=== PATIENT | male | born 1990 | race Caucasian/White ===

== ENCOUNTER 2023-07-31 13:45 | Outpatient (CLI) | payer BC, SELFPAY ==
[2023-07-31 18:56] LABS: Alanine Aminotransferase 21 U/L (12-78); Albumin Level 4.3 g/dl (3.5-5.0); Albumin/Globulin Ratio 1.9 (1.1-1.8); Alkaline Phosphatase 56 U/L (38-126); Anion Gap 14.7 mEq/L (5-15); Aspartate Amino Transferase 31 U/L (17-59); Bilirubin,Total 0.7 mg/dl (0.2-1.3); Blood Urea Nitrogen 15 mg/dl (9-20); Calcium 9.3 mg/dl (8.4-10.2); Carbon Dioxide 29 mmol/L (22.0-30.0); Chloride 99 mmol/L (98-107); Chol/HDL Ratio 2.6 (1-3.5); Cholesterol 150 mg/dl (140-200); Estimated Glomerular Filt Rate 132 ml/min (>60); GFR (African American) 159 ML/MIN (>60); Globulin 2.3 g/dL (1.3-3.2); Glucose 104 mg/dl (74-100); HDL Cholesterol 58 mg/dl (40-60); Potassium 3.7 mmoL/L (3.5-5.1); Sodium 139 mmol/L (136-145); Total Protein,Serum 6.6 g/dl (6.3-8.2); Triglycerides 48 mg/dl (30-150); VLDL Cholesterol 10 mg/dL (0-40)
[2023-07-31 19:07] LABS: Basophils % 0.7 % (0.1-2.0); Eosinophils # 0.1 K/mm3 (0.0-0.4); Hematocrit 42.9 % (42.0-52.0); Hemoglobin 14.1 g/dL (14.1-18.0); Lymphocytes # 1.9 K/mm3 (0.7-4.5); Mean Corpuscular HGB Conc 32.8 g/dL (31.8-35.4); Mean Corpuscular Volume 88.6 fl (80-94); Mean Platelet Volume 8.2 fl (7.4-10.4); Monocytes # 0.2 K/mm3 (0.1-1.0); Neutrophils # 1.5 K/mm3 (1.8-7.8); Neutrophils % 40.3 % (37.0-80.0); Platelet Count 244 K/mm3 (142-424); Red Blood Count 4.84 M/mm3 (4.60-6.20); Red Cell Distribution Width 14.3 % (11.5-17.5); White Blood Count 3.7 K/mm3 (4.8-10.8)
[2023-07-31 19:08] LABS: Direct LDL Cholesterol 73.78 mg/dL (100-129)
[2023-07-31 19:10] LABS: MANUAL DIFFERENTIAL MANUAL DIFFERENTIAL (MANUAL DIFF)
[2023-07-31 19:13] LABS: 25-OH Vitamin D, Total 21.1 ng/mL (30-100)
[2023-07-31 19:27] LABS: Eosinophils % 4 % (0-3); Lymphocytes % 59 % (10-50); Monocytes % 4 % (2-9); Neutrophils % 33 % (42-76); Thyroid Stimulating Hormone 4.85 uIU/mL (0.465-4.68); Total Cells Counted 100
[2023-07-31 19:29] LABS: Platelet Estimate Normal; RBC Morphology Normal
== END 2023-07-31 23:59 | disposition home or self-care (01) ==
LOC: LAB.DROPOF 08-01 12:36
PROVIDERS: PCP Nurse Practitioner Family; Visit Provider Nurse Practitioner Family
DX: E16.2 Hypoglycemia, unspecified (principal); E55.9 Vitamin D deficiency, unspecified; D72.819 Decreased white blood cell count, unspecified; Z79.899 Other long term (current) drug therapy
CPT/HCPCS: 80053; 80061; 82306; 83036; 84443; 85007; 85025